=== PATIENT | female | born 1970 | race Caucasian/White ===

== ENCOUNTER 2018-03-10 10:15 | Emergency (ER) | payer OTHER ==
[~2018-03-10] VITALS: Ht 162.6 cm; Wt 90.7 kg
[2018-03-10] MEDS ORDERED: ALBUTEROL2.5 MG/31 INH (10:29)
[2018-03-10] MEDS ORDERED: PREDNISONE 20 M20 MG PO (10:30)
[2018-03-10] MEDS ORDERED: LEVAQUIN 500 M500 M3 PO (10:30)
[2018-03-10] MEDS ORDERED: PROAIR HFA8.5 GM PO (10:30)
[2018-03-10 11:11] LABS: ABSOLUTE BASOPHILS 0.2 thou/uL (0.0-0.2); ABSOLUTE EOSINOPHILS 0.1 thou/uL (0.0-0.7); ABSOLUTE LYMPHOCYTES 3.7 thou/uL (0.8-5.3); ABSOLUTE NEUTROPHILS 8.8 thou/uL (1.6-8.1); BASOPHILS 1.3 %; EOSINOPHILS 0.5 %; HEMATOCRIT 43.8 % (37.0-47.0); HEMOGLOBIN 14.7 gm/dL (12.0-15.0); LYMPHOCYTES 27.1 %; MCH 28.4 pg (26.0-34.0); MCHC 33.6 g/dL (28.0-37.0); MCV 84.6 fL (80.0-100.0); MONOCYTES 7.1 %; MPV 7.4 fl. (7.2-11.1); NUCLEATED RBCS 0 /100WBC; PLATELET COUNT* 313 thou/uL (150-400); RBC 5.18 mil/uL (4.20-5.00); RDW-CV 14.1 % (10.5-14.5); WBC 13.8 thou/uL (4.0-11.0)
[2018-03-10 11:20] LABS: ANION GAP 9 mmol/L (7-16); BUN 17 mg/dL (7-18); CALCIUM 9.1 mg/dL (8.5-10.1); CHLORIDE 106 mmol/L (98-107); CO2 25 mmol/L (21-32); CREATININE 0.8 mg/dL (0.6-1.3); GLUCOSE 82 mg/dL (70-99); POTASSIUM 3.4 mmol/L (3.5-5.1); SODIUM 140 mmol/L (136-145)
[2018-03-10 11:27] LABS: ALBUMIN 3.6 g/dL (3.4-5.0); ALKALINE PHOSPHATASE 64 U/L (46-116); SGOT 24 U/L (15-37); SGPT 58 U/L (30-65); TOTAL BILIRUBIN 0.3 mg/dL (<0.1-1.0); TOTAL PROTEIN 7.5 g/dL (6.4-8.2); TROPONIN-I LEVEL <0.06 ng/mL (<0.06)
[2018-03-10] MEDS ORDERED: CHERATUSSIN AC118 ML PO (12:20)
[2018-03-10 12:32] VITALS: BP 109/70
--- NOTE | 2018-03-10 15:38 | EKG ---
[place] [address] ELECTROCARDIOGRAM REPORT Name: FRANCESCA LEGER Room: [place]#: [id number] Admission: 03/10/18 Attend Phys: Discharge: 03/10/18 Date of : 72 Report #: [id number] THIS REPORT FOR: //name// [facility] ED Test Date: 2018-03-10 Test Time: 11:03:50 Pat Name: FRANCESCAAICHA LEGER Department: Room: Gender: F Sql Dba: Renae STEEN : 1970 Requested By: Kimi Arias Order Number: [id number] MD: Abdelrahman Andrews Measurements Intervals [place] Rate: 90 P: 65 ID: [id number] QRS: 3 QRSD: 97 T: 29 QT: 345 QTc: 422 Interpretive Statements Sinus rhythm Baseline wander in lead(s) II,III,aVF No previous ECG available for comparison Electronically Signed On 03-10-2018 15:38:42 CDT by Abdelrahman Andrews [email or web address] <ELECTRONICALLY SIGNED> By: Abdelrahman Andrews MD, LOCATED WITHIN [facility] 03/10/18 1538 1103 02 Abdelrahman Andrews MD, FACC /EPI
== END 2018-03-10 12:47 | disposition home or self-care (01) ==
LOC: M.ERS 10:15
PROVIDERS: Nurse Practitioner Family
DX: J18.9 Pneumonia, unspecified organism (principal); J45.909 Unspecified asthma, uncomplicated; R11.2 Nausea with vomiting, unspecified; R19.7 Diarrhea, unspecified; Z88.2 Allergy status to sulfonamides

== ENCOUNTER 2019-03-26 03:42 | Emergency (ER) | payer OTHER ==
[~2019-03-26] VITALS: Ht 162.6 cm; Wt 90.7 kg
[~2019-03-26 03:42] MED LIST: ALBUTEROL2.5 MG/31 INH; CHERATUSSIN AC118 ML PO; LEVAQUIN 500 M500 M3 PO; PREDNISONE 20 M20 MG PO; PROAIR HFA8.5 GM PO
[2019-03-26] MEDS ORDERED: LISINOPRIL40 MG PO (03:51)
[2019-03-26] MEDS ORDERED: PREVACID30 M2 PO (03:52)
[2019-03-26 04:00] LABS: ABSOLUTE BASOPHILS 0.1 thou/uL (0.0-0.2); ABSOLUTE EOSINOPHILS 0.4 thou/uL (0.0-0.7); ABSOLUTE LYMPHOCYTES 3.3 thou/uL (0.8-5.3); ABSOLUTE MONOCYTES 0.5 thou/uL (0.0-1.2); BASOPHILS 1.3 %; EOSINOPHILS 3.9 %; HEMATOCRIT 41.5 % (37.0-47.0); HEMOGLOBIN 13.7 gm/dL (12.0-15.0); MCH 28.1 pg (26.0-34.0); MCHC 33.1 g/dL (28.0-37.0); MCV 84.7 fL (80.0-100.0); MONOCYTES 5.1 %; MPV 7.4 fl. (7.2-11.1); NUCLEATED RBCS 0 /100WBC; PLATELET COUNT* 271 thou/uL (150-400); POLYS 57.7 %; RDW-CV 14.2 % (10.5-14.5); WBC 10.4 thou/uL (4.0-11.0)
[2019-03-26 04:12] LABS: CALCIUM 8.4 mg/dL (8.5-10.1); POTASSIUM 3.9 mmol/L (3.5-5.1)
[2019-03-26 04:17] LABS: ALBUMIN 3.2 g/dL (3.4-5.0); TOTAL BILIRUBIN 0.5 mg/dL (<0.1-1.0)
[2019-03-26 04:49] LABS: URINE BILIRUBIN NEGATIVE (Negative); URINE BLOOD 1+ (Negative); URINE CLARITY CLEAR; URINE COLOR YELLOW; URINE GLUCOSE-RANDOM NEGATIVE (Negative); URINE KETONES NEGATIVE (Negative); URINE LEUKOCYTES-REFLEX NEGATIVE (Negative); URINE NITRITE-REFLEX NEGATIVE (Negative); URINE PROTEIN NEGATIVE (Negative); URINE UROBILINOGEN 0.2 E.U./dl (0.2-1.0)
[2019-03-26] MEDS ORDERED: ZOFRAN ODT4 MG PO (05:29)
[2019-03-26] MEDS ORDERED: FLOMAX0.4 MG PO (05:29)
[2019-03-26] MEDS ORDERED: HYDROCODON-ACE1 EAC7 PO (05:29)
[2019-03-26 05:31] LABS: BACTERIA-REFLEX 1-9 Few /HPF (None Seen); CASTS None Seen /LPF (None Seen); CRYSTALS None Seen /LPF (None Seen); MUCUS 0-3 Light strn/LPF (None Seen); SQUAMOUS 4-10 Moderate /LPF (0-3); URINE RBC 3-10 Few /HPF (0-2); URINE WBC-REFLEX 0-5 Rare /HPF (0-5)
[2019-03-26 05:45] VITALS: BP 159/83
== END 2019-03-26 05:48 | disposition home or self-care (01) ==
LOC: M.ERS 03:42
PROVIDERS: Personal Emergency Response Attendant
DX: N13.30 Unspecified hydronephrosis (principal); N23 Unspecified renal colic; Z88.2 Allergy status to sulfonamides; J45.909 Unspecified asthma, uncomplicated